=== PATIENT | male | born 1995 | race Caucasian/White ===

== ENCOUNTER 2017-10-24 13:49 | Emergency (ER) | payer OTHER ==
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
[2017-10-24 16:40] VITALS: BP 128/64
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
== END 2017-10-24 16:40 | disposition home or self-care (01) ==
DX: S09.90XA Unspecified injury of head, initial encounter (principal); V18.4XXA Pedal cycle driver injured in noncollision transport accident in traffic accident, initial encounter; Y92.89 Other specified places as the place of occurrence of the external cause; Y99.8 Other external cause status; Y93.55 Activity, bike riding